=== PATIENT | female | born 2005 | race Caucasian/White ===

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

== ENCOUNTER 2024-07-24 11:10 | Emergency (ER) | payer BC, SELFPAY ==
--- NOTE | ~2024-07-24 | US_ITS ---
CLINICAL HISTORY: RUQ pain. alcoholic drinkinbg US abdomen limited Comparison: CT/SR - CT ABDOMEN PELVIS W IV CON - 08/23/22 18:40 EDT Findings: The visualized pancreas is normal. The aorta and inferior vena cava are normal caliber. The liver is normal in size and echotexture. There is no intrahepatic bile duct dilatation. The common duct is 2.7 mm in diameter. The gallbladder is normal. There is no sonographic Naqvi sign. The main portal vein is antegrade. The right kidney is 12.3 cm in length. No ascites. IMPRESSION: 1. Normal limited abdominal ultrasound. This document has been electronically signed by: Sadi Anderson MD on 07/24/2024 20:34:30
[2024-07-24 11:15] VITALS: BP 124/81; PULSE 105; RESP 20; TEMP 36.3; O2SAT 98; BMI 22.8
[2024-07-24 11:58] LABS: MANUAL DIFF FLAG NO
[2024-07-24 12:00] LABS: Basophils Percent Auto 0.3 % (0-2); Eosinophils Percent Auto 0.2 % (0-4); Hematocrit 41.2 % (37.0-47.0); Hemoglobin 13.8 g/dl (12.0-16.0); Imm Gran Abs Auto 0.05 X10*3/uL (0.00-0.03); Imm Gran Pct Auto 0.4 % (0.0-0.4); Lymphocytes Absolute Auto 0.7 X10*3/uL (1.2-4.9); Lymphocytes Percent Auto 4.9 % (20-40); Mean Corpuscular HGB Conc 33.5 g/dl (31.0-35.0); Mean Corpuscular Hemoglobin 29.2 pg (27.0-33.0); Mean Corpuscular Volume 87.1 fL (80.0-98.0); Mean Platelet Volume 9.6 fL (9.4-12.3); Monocytes Absolute Auto 0.8 X10*3/uL (0.1-1.2); Monocytes Percent Auto 5.6 % (2-11); Neutrophils Absolute Auto 12.2 x10*3/uL (2.0-8.3); Neutrophils Percent Auto 88.6 % (45-73); Platelet Count 287 X10*3/uL (160-400); Red Blood Count 4.73 X10*6/uL (4.20-5.50); White Blood Count 13.8 X10*3/uL (4.8-10.8)
[2024-07-24 12:12] LABS: IDNOW Serial# 58CA691E; Strep A Nucleic Acid Negative (Negative)
[2024-07-24 12:18] LABS: Alanine Aminotransferase 14 U/L (0-31); Albumin Level 4.6 g/dL (3.5-5.0); Alkaline Phosphatase 86 U/L (39-117); Anion Gap 13 (12-20); Aspartate Amino Transferase 19 U/L (5-31); Bilirubin Direct 0.3 mg/dL (0.0-0.5); Bilirubin Total 0.6 mg/dL (0.0-1.0); Blood Urea Nitrogen 11 mg/dL (9-16); Calcium 9.2 mg/dL (8.4-10.2); Carbon Dioxide 23 mmol/L (22-29); Chloride 109 mmol/L (96-108); Creatinine Clr Calc Pharmacy 144.1; Estimated Glomerular Filt Rate > 60; Glucose Random 121 mg/dL (60-115); Lipase 10 U/L (8-78); Potassium 4.4 mmol/L (3.3-5.1); Sodium 141 mmol/L (135-145)
[2024-07-24 12:46] LABS: Influenza A PCR NEGATIVE (Negative); Influenza B PCR NEGATIVE (Negative); Resp Syncy Virus RNA Qual PCR NEGATIVE (Negative); SARS COV2 PCR INHOUSE NEGATIVE (Negative)
[2024-07-24 13:09] LABS: HCG Quantitative < 2 mIU/mL
[2024-07-24 16:02] VITALS: BP 102/75; PULSE 112; RESP 20; TEMP 37; O2SAT 99
--- OUTSIDE RECORDS SUMMARY | 2024-07-24 16:33 | XMS_ITS | Clinical Summary ---
Author Organization [facility] Address [address] [place] [address] Care Team Providers Care Tribal Council Member Name Role Phone JamazaidMiguel renee Primary Care Provider Allergies Active Allergy Reactions Criticality Noted Date Comments Amoxicillin Urticaria (Hives) Medium 03/10/2019 Taylor Urticaria (Hives) Medium 03/10/2019 Penicillins Urticaria (Hives) Medium 03/10/2019 Medications MICROGESTIN FE 06/13, , per tablet TAKE 1 TABLET BY ORAL ROUTE ONCE DAILY 0 02/28/2019 Active Active Problems Problem Noted Date Diagnosed Date IBS (irritable bowel syndrome) 01/23/2019 Family History Relation Name Status Comments Brother Alive Father Alive Mother Alive Sister Alive Social History Tobacco Use Types Packs/Day Years Used Date Smoking Tobacco: Never Smokeless Tobacco: Never Alcohol Use Standard Drinks/Week Comments Never 0 (1 standard drink = 0.6 oz pur e alcohol) Comments No Sex and Gender Information Value Date Recorded Sex Assigned at Not on file Legal Sex Female 4:36 PM EDT Gender Identity Not on file Sexual Orientation Not on file Last Filed Vital Signs Vital Sign Reading Time Taken Comments Blood Pressure 127/83 03/16/2019 11:00 AM EDT Pulse 83 09/03/2020 2:57 PM EDT Temperature 37.2 ??C (98.9 ??F) 03/16/2019 8:44 AM ED T Respiratory Rate 15 03/16/2019 11:00 AM EDT Oxygen Saturation 98% 09/03/2020 2:57 PM EDT Inhaled Oxygen Concentration - - Weight 74.8 kg (165 lb) 06/01/2021 9:53 AM EST Height 182.9 cm (6') 06/01/2021 9:53 AM EST Body Mass Index 22.38 06/01/2021 9:53 AM EST Plan of Treatment Health Maintenance Due Date Last Done Comments Annual Physical Examination 2006 HIV Screening 01/28/2016 Chlamydia Screening 2019 Hepatitis C Screening 2021 Tetanus Vaccination 05/11/2023 05/11/2013 Covid-19 Vaccine (1 - 2023-2 5 season) 2024 Influenza Vaccination (#1) 2024 03/17/2014, Cervical Cancer Screening (A ges 21-29 Q3Y) 01/28/2024 HPV Vaccines Completed 04/18/2019, 06/26, 03/22/2018, Additional history exists Insurance Care Teams Tribal Council Member Relationship Specialty Start Date End Date Miguel Salgado DO PCP - General Pediatrics, General 03/10/19
--- OUTSIDE RECORDS SUMMARY | 2024-07-24 16:33 | XMS_ITS | Continuity of Care Document ---
Author Organization [facility] Address [address] [place], [place] Phone Care Team Providers Care Orthopedics Teacher Name Role Phone BIRGIT VASQUEZ, BRICE Unavailable Unavailable Procedures Procedure Date ESTABLISHED PATIENT OFFICE VISIT - LEVEL 3 ESTABLISHED PATIENT OFFICE VISIT - LEVEL 3 X-RAY OF KNEE - 3 VIEWS X-RAY OF KNEE - 3 VIEWS Advance Directives Directive Yes / No Effective Date File Name No Information Encounters Encounter Description Practice Location Reason(s) For Visit Diagnoses Date Provider Providers Copied on Encounter ESTABLISHED PATIENT OFFICE VISIT - LEVEL 3 [facility], [address], [place], [place], , [place] tel:[phone] No Information 1 BIRGIT NARVAEZ. [address], [address], [place], [place], [id number] , [place]. tel:[phone] ESTABLISHED PATIENT OFFICE VISIT - LEVEL 3 [facility], [address], [place], [place], , [place] tel:[phone] No Information 1 HASMUKH SANTA. [address], [address], [place], [place], [id number] , [place]. tel:[phone] Referring Provider: BRICE GENAO, [address], [place], [address] . tel:[phone] Family History Family Member Type Diagnosis Age At Onset No Information Payers Payer name Insurance type Covered constitution party ID Authoriza tion(s) [facility] [id number] Social History Type Description Quantity Date Captured Comments Sex Female Smoking Status No Information Chief Complaint And Reason For Visit No Information Reason For Referral Reason For Referral No Information History Of Present Illness Encounter Date Complaint History Of Prese nt Illness No Information Functional Status Date Functional Assessmen t No Information Instructions Date Instruction Additional Infor mation No Information Assessments Type Assessment Date No Information Patient Care Teams Name Effective Dates (start - stop) Status Members No Information
--- OUTSIDE RECORDS SUMMARY | 2024-07-24 16:34 | XMS_ITS | Encounter Summary ---
Author Organization [facility] Address [address] [place] [address] Care Team Providers Care Implementation Services Analyst Name Role Phone Miguel Salgado DO Primary Care Provider [phone] Reason for Visit * Auth/Cert Specialty Diagnoses / Procedures Referred By Marito navarro Referred To Contact Diagnoses Gastroesophageal reflux disease, esophagitis presence not specified Gastroesophageal reflux disease, esophagitis presence not specified [K21.9] Procedures MT EGD TRANSORAL BIOPSY SINGLE/MULTIPLE EGD W/ BIOPSY Dereck Barlow DO [address] [place] [address] Phone: tel: fax: [facility] - Endoscopy [address] [place] [address] fax: Referral ID Status Reason Start Date Expiration Date Visits Re quested Visits Authorized [id number] 1 1 Encounter Details Date Type Department Care Team (Late st Contact Info) Description 03/16/2019 Lab Requisition [facility] - Pathology [address] [place] [address] Dereck Barlow DO [address] [place] [address] Gastro-esophageal reflux disease without esophagitis Social History Tobacco Use Types Packs/Day Years Used Date Smoking Tobacco: Never Smokeless Tobacco: Never Alcohol Use Standard Drinks/Week Comments Never 0 (1 standard drink = 0.6 oz pur e alcohol) Comments No Sex and Gender Information Value Date Recorded Sex Assigned at Not on file Legal Sex Female 4:36 PM EDT Gender Identity Not on file Sexual Orientation Not on file documented as of this encounter Functional Status documented as of this encounter Progress Notes * Dereck Barlow DO - 03/16/2019 4:24 PM EDT Left message to discuss bx report. documented in this encounter Plan of Treatment Not on file documented as of this encounter Procedures Procedure Name Priority Date/Time Associated Diagnosis Comments SURGICAL PATHOLOGY Routine 03/16/2019 10 :15 AM EDT Gastro-esophageal reflux disease without esophagitis documented in this encounter Results * SURGICAL PATHOLOGY (03/16/2019 10:15 AM EDT) Case Report Surgical Biopsy Report ?Case: [id number] ? Authorizing Provider: ??Dereck Barlow DO ? Collected: ? 03/16/2019 1015 ? Ordering Location: ? [facility] - ?Received: ?03/16/2019 1626 ? Pathology ? Pathologist: ? Asad Morgan MD ? Specimens: ?? A) - Duodenum ? B) - Stomach, antrum ? C) - Esophagus, Esophagus 40cm ? D) - Esophagus, Esophagus 30cm ? E) - Esophagus, Esophagus 20cm ? 03/29/2019 1:30 PM EST [facility] Final Diagnosis A. Duodenum, biopsy: Duodenal mucosa , histologically unremarkable. B. Stomach, antrum, biopsy : Mild chronic gastritis. Immunostain for H. Pylori is negative. C. Esophagus, at 40 cm, biopsy: Esophageal epithelium, histologically unremarkable. D. Esophagus, at 30 cm, biopsy : Esophageal epithelium, histologically unremarkable. E. Esophagus, at 20 cm, biopsy : Esophageal epithelium, histologically unremarkable. Reported by ASAD MORGAN MD on 03/29/19 at 13:30 03/29/2019 1:30 PM EST [facility] Gross Description A. Received in formalin labeled with the patient's name Oumou Ramirez and designated duodenum are two nixon soft tissue fragments which measure 0.3 x 0.1 x 0.1 cm and 0.2 x 0.2 x 0.1 cm. Entirely submitted in 1 cassette labeled A1. Cassettes submitted on 03/18/2019. VWR 03/18/2019 18:22 PM B. Received in formalin labeled with the patient's name Oumou Ramirez and designated antrum are two nixon soft tissue fragments which measure 0.3 x 0.1 x 0.1 cm and 0.2 x 0.1 x 0.1 cm. Entirely submitted in 1 cassette labeled B1. Cassettes submitted on 03/18/2019. VWR 03/18/2019 18:22 PM C. Received in formalin labeled with the patient's name Lo Ramirez and designated esophagus 40 cm is one nixon soft tissue fragment measuring 0.4 x 0.2 x 0.1 cm. Entirely submitted in 1 cassette labeled C1. Cassettes submitted on 03/18/2019. VWR 03/18/2019 18:22 PM D. Received in formalin labeled with the patient's name Lo Ramirez and designated esophagus 30 cm is one nixon soft tissue fragment measuring 0.1 x 0.1 x 0.1 cm. Entirely submitted in 1 cassette labeled D1. Cassettes submitted on 03/18/2019. VWR 03/18/2019 18:22 PM E. Received in formalin labeled with the patient's name Lo Ramirez and designated esophagus 20 cm is one nixon soft tissue fragment measuring 0.4 x 0.2 x 0.1 cm. Entirely submitted in 1 cassette labeled E1. Cassettes submitted on 03/18/2019. VWR 03/18/2019 18:22 PM 03/29/2019 1:30 PM EST [facility] Disclaimer The electronic signature attests that the named Attending Pathologist has evaluated the specimen referred to in the signed section of the report and formulated the diagnosis therein. This report may include results from one or more molecular tests that were developed and their performance characteristics determined by [facility] - [address] [place] [address]. This report may include one or more histochemical, immunohistochemica l, and in-situ hybridization stain results that use analyte specific reagents. The tests were developed and their performance characteristics determined by [facility] [address] [place] [address]. These molecular, immunohistochemist ry, and in-situ hybridization tests are not cleared or approved by the US Food and Drug Administration. The FDA has determined that such clearance or approval is not necessary. The adequacy of testing is verified by appropriate controls. These assays are for clinical use and should not be regarded as investigational or for research. This laboratory is certified under the Clinical Laboratory Improvement Amendments of 1988 (CLIA-88) as qualified to perform high complexity clinical laboratory testing. 03/29/2019 1:30 PM EST [facility] at 1330 EST Biopsy specimen (specimen) DUODENAL STRUCTURE / Unknown 03/16/2019 10:15 AM EDT 03/16/2019 4:26 PM EDT Biopsy specimen (specimen) PYLORIC ANTRUM STRUCTURE / Unknown 03/16/2019 10:15 AM EDT 03/16/2019 4:26 PM EDT Biopsy specimen (specimen) ESOPHAGEAL STRUCTURE / Unknown 03/16/2019 10:15 AM EDT 03/16/2019 4:26 PM EDT Biopsy specimen (specimen) ESOPHAGEAL STRUCTURE / Unknown 03/16/2019 10:15 AM EDT 03/16/2019 4:26 PM EDT Biopsy specimen (specimen) ESOPHAGEAL STRUCTURE / Unknown 03/16/2019 10:15 AM EDT 03/16/2019 4:26 PM EDT Dereck Barlow DO PATHOLOGY/CYTOLOGY ORDERABLES Final Result [facility] documented in this encounter Visit Diagnoses Diagnosis Gastro-esophageal reflux disease without esophagitis documented in this encounter Care Teams Implementation Services Analyst Relationship Specialty Start Date End Date Miguel Salgado DO PCP - General Pediatrics, General 03/10/19 documented as of this encounter
--- OUTSIDE RECORDS SUMMARY | 2024-07-24 16:34 | XMS_ITS ---
Author Organization [facility] Address [address] [place] [address] Care Team Providers Care Machine Pie Maker Name Role Phone PCP, Not Found in eCW Primary Care Provider Iam tran AnthonyidaliaSandran Unavailable [phone] ALLERGIES No Known Allergies RESULTS Component Value Reference Range Notes Monospot Reviewed date:06/06/2024 02:24:58 PM Interpretation:Positive Performing Lab: Notes/Report: Positive Mononucleosis Test, Qual positive NEG - POS Rapid Flu Reviewed date:06/07/2024 09:05:14 AM Interpretation:Negative Performing Lab: Notes/Report: Negative Influenza negative NEG - POS Rapid Flu Nose Identifier Rapid Flu Nose Presence Rapid Flu Nose - Upper Respiratory Specimen COVID-19 Rapid Antigen Reviewed date:06/06/2024 02:19:12 PM Interpretation:Negative Performing Lab: Notes/Report: Negative COVID19 NEGATIVE Covid-19 PCR - [facility] Reviewed date:06/07/2024 06:38:58 PM Interpretation:Negative Performing Lab:[facility], [address] [place] [address], Director - [facility] Carbonator: Nato Quinn MD Notes/Report: COVID-19 RT-PCR Not Detected Not Detected You can help in the fight against COVID-19. [facility] may contact you to see if you are interested in voluntarily participating in one of our clinical trials. Testing is performed using polymerase chain reaction (RT-PCR) or equivalent farm equipment service technician mediated amplification (TMA) methodology. This COVID-19 (SARS-CoV-2) nucleic acid amplification test was validated by [facility] and is in use under the FDA Emergency Use Authorization (EUA) for clinical labs CLIA-certified to perform high complexity testing. Test results should be correlated with clinical presentation, patient history, and epidemiology. A = Abnormal, H = High, HH = Critical High, L = Low, LL = Critical Low Rapid Strep Reviewed date:06/06/2024 02:29:26 PM Interpretation:Negative Performing Lab: Notes/Report: Negative STREP negative NEG - POS Throat Culture - [facility]J Reviewed date:06/09/2024 09:23:28 AM Interpretation:Negative Performing Lab:[facility], [address] [place] [address], Director - [facility] Carbonator: Nato Quinn MD Notes/Report: Throat Strep A SEE NOTE: : 2005 SEX: Female Microbiology Test Name: Throat Culture [P1] Source: Throat Body Site: Collected Date/Time: 06/06/2024 14:29 EST Received Date/Time: 06/07/2024 10:12 EST Start Date/Time: 06/07/2024 10:12 EST Free Text Source: FINAL REPORT Final Report [] Reported Date/Time: 06/09/2024 08:18 EST No Streptococcus pyogenes (Group A) isolated Performing Locations P1: This test was performed at: [facility], [address] [place] [address], [id number] A = Abnormal, H = High, HH = Critical High, L = Low, LL = Critical Low REASON FOR VISIT ILLNESS SOCIAL HISTORY Tobacco Use: Social History Observation Description Date Details (start date - stop date) Former Smoker NA - NA Sex Assigned At : Social History Observation Description Sex Assigned At Unknown Tobacco Use/Smoking Question Answer Notes You are a former smoker How long has it been since you last smoked? < 1 month VITAL SIGNS Temperature 99.7 degrees Fahrenheit 06/06/19 25 Heart Rate 80 /min 06/06/2024 Blood pressure systolic 115 mm Hg 06/06/19 25 Blood pressure diastolic 78 mm Hg 025 Respiratory Rate 16 /min 06/06/2024 Oximetry 98 % 06/06/2024 Height 71 in 06/06/2024 Weight 175 lbs 06/06/2024 BMI 24.4 kg/m2 06/06/2024 Encounters Encounter Location Date Provider Diagnosis [facility] [address] [place] [address] 06/06/2024 Yue Gomez Encounter for laboratory testing for COVID-19 virus Z20.822 ; Infectious mononucleosis without complication, infectious mononucleosis due to unspecified organism B27.90 and Myalgia M79.10 ASSESSMENTS Encounter Date Diagnosis Assessment Notes Treatment Notes Treatment Clinical Notes 06/06/2024 Encounter for laboratory testing for COVID-19 virus (ICD-10 - Z20.822) 06/06/2024 Infectious mononucleosis without complication, infectious mononucleosis due to unspecified organism (ICD-10 - B27.90) Mononucleosis (also called mono) is a contagious viral infection. Most infants and children exposed to the virus get only mild flu-like symptoms or no symptoms at all. However, infection is usually more serious in teens and young adults. While the virus is active, it causes symptoms and can spread to others. After symptoms subside, the virus stays in the body and eventually becomes inactive. The virus can reactivate and develop symptoms, especially in people with weak immune systems. The virus is usually spread by contact with saliva, often by kissing, or sharing food or eating utensils. It may also spread by breastmilk, blood, or sexual contact. It takes about 4 to 6 weeks to develop symptoms after exposure. Early symptoms include headache, nausea, tiredness and general muscle aching. This is followed by sore throat and fever. Lymph glands in the neck, under the arms, or in the groin may be swollen. Symptoms usually go away in about 1 to 2 months. But they can last up to 4 months. In the first few days to weeks, a common blood test (the monospot test) used to diagnose this disease may be negative even though you have the illness. In this case, other tests may be done. Taking the antibiotics ampicillin or amoxicillin during a mono infection may cause a skin rash. This is not serious and will fade in about a week. The rash may not mean you are having an allergic reaction to the antibiotic. Sabine can cause your spleen to swell. The spleen is a fist-sized organ in the upper left abdomen that stores red blood cells. Injury to a swollen spleen can cause the spleen to rupture. This can cause life-threatening internal bleeding. To prevent this from happening, don't play contact sports or do strenuous activity for 8 weeks, or until your healthcare provider says it's OK. A sharp blow or pressure to the area could rupture a swollen spleen Rest in bed until the fever and weakness have gone away. Drink plenty of fluids, but don't drink alcohol. Otherwise, you may eat a regular diet. Nxxt-zqn-ljkcnlu throat lozenges may help soothe a sore throat. Gargling with warm salt water (1/2 teaspoon in 1 glass of warm water) may also be soothing to the throat. You may return to work or school after the fever goes away and you are feeling better. Continue to follow any activity restrictions you have been given. To limit the spread of the virus, don't expose others to your saliva for at least 6 months after your illness (no kissing or sharing utensils, drinking glasses, or toothbrushes). Follow up with your healthcare provider within 1 to 2 weeks, or as advised to be sure that there are no complications. If symptoms of extreme fatigue and swollen glands last longer than 6 months, see your healthcare provider for further testing. Call your healthcare provider right away if any of the following occur: Excessive coughing, Yellow skin or eyes, Trouble swallowing, Dizziness, Paleness 06/06/2024 Myalgia (ICD-10 - M79.10) 06/06/2024 Other PLAN OF TREATMENT Treatment Notes Assessment Notes Infectious mononucleosis wit hout complication, infectious mononucleosis due to unspecified organism Mononucleosis (also called mono) is a contagious viral infection. Most infants and children exposed to the virus get only mild flu-like symptoms or no symptoms at all. However, infection is usually more serious in teens and young adults. While the virus is active, it causes symptoms and can spread to others. After symptoms subside, the virus stays in the body and eventually becomes inactive. The virus can reactivate and develop symptoms, especially in people with weak immune systems. The virus is usually spread by contact with saliva, often by kissing, or sharing food or eating utensils. It may also spread by breastmilk, blood, or sexual contact. It takes about 4 to 6 weeks to develop symptoms after exposure. Early symptoms include headache, nausea, tiredness and general muscle aching. This is followed by sore throat and fever. Lymph glands in the neck, under the arms, or in the groin may be swollen. Symptoms usually go away in about 1 to 2 months. But they can last up to 4 months. In the first few days to weeks, a common blood test (the monospot test) used to diagnose this disease may be negative even though you have the illness. In this case, other tests may be done. Taking the antibiotics ampicillin or amoxicillin during a mono infection may cause a skin rash. This is not serious and will fade in about a week. The rash may not mean you are having an allergic reaction to the antibiotic. Sabine can cause your spleen to swell. The spleen is a fist-sized organ in the upper left abdomen that stores red blood cells. Injury to a swollen spleen can cause the spleen to rupture. This can cause life-threatening internal bleeding. To prevent this from happening, don't play contact sports or do strenuous activity for 8 weeks, or until your healthcare provider says it's OK. A sharp blow or pressure to the area could rupture a swollen spleen Rest in bed until the fever and weakness have gone away. Drink plenty of fluids, but don't drink alcohol. Otherwise, you may eat a regular diet. Fzlu-kns-otpiiml throat lozenges may help soothe a sore throat. Gargling with warm salt water (1/2 teaspoon in 1 glass of warm water) may also be soothing to the throat. You may return to work or school after the fever goes away and you are feeling better. Continue to follow any activity restrictions you have been given. To limit the spread of the virus, don't expose others to your saliva for at least 6 months after your illness (no kissing or sharing utensils, drinking glasses, or toothbrushes). Follow up with your healthcare provider within 1 to 2 weeks, or as advised to be sure that there are no complications. If symptoms of extreme fatigue and swollen glands last longer than 6 months, see your healthcare provider for further testing. Call your healthcare provider right away if any of the following occur: Excessive coughing, Yellow skin or eyes, Trouble swallowing, Dizziness, Paleness Progress Notes * Examination Category Sub-Category Detail Notes General PE GENERAL: no acute distres s, well developed, well nourished HEAD: normocephalic EYES: sclera non-icteric, no conjunctival injection MOUTH/THROAT , moist mucous membr anes, exudate noted bilaterally, mild erythema NECK supple HEART: regular rate and rhy thm LUNGS: Normal: clear to aus cultation, No respiratory distress, no accessory muscle use, No rales, No rhonchi, No wheezing NEUROLOGIC: alert and oriented , speech clear SKIN warm, dry, No rash o n visible skin LYMPHATIC no cervical lymphade nopathy EARS tympanic membranes c lear bilaterally , no redness , normal landmarks and light reflexes , canal clear without cerumen impaction History and Physical Notes * HPI (History of Present Illness) Category Sub-Category Detail Notes URI nasal congestion admits cough admits fever Admits, >101.0F vomiting none diarrhea none ear pain Denies sore throat mild Duration 4 days myalgias admits, moderate, di ffuse chills admits Modifying Factors patient has tried OT C medications with mild relief shortness of breath Denies
--- OUTSIDE RECORDS SUMMARY | 2024-07-24 16:34 | XMS_ITS | Patient Health Record ---
Author Organization [facility] Address [address] [facility] [address] [place] [address] Care Team Providers Care Utility Worker Forge Name Role Phone Miguel Salgado Primary Care Provider Unavail able ALLERGIES Allergen (clinical drug ingredient) Drug/Non Drug Allergy documented on EMR Reaction Allergy Type Onset Date Status amoxicillin Amoxicillin rash Drug Allergy Act trav Taylor Unknown Drug Allergy Active penicillin rash Drug Allergy Active REASON FOR REFERRAL No Information MEDICATIONS Medication SIG (Take, Route, Fr equency, Duration) Notes Start Date End Date Status Blanquitaestrin (21) Active SOCIAL HISTORY Sex Assigned At : Social History Observation Description Sex Assigned At Unknown PLAN OF TREATMENT No Information Insurance Providers Payer Name Payer Address Payer Phone Subscriber Number Group Number Insured Name Patient Relationship to Insured Coverage Start Date Coverage End Date [facility] [address] [place], [place] [id number] SERAFIN BAZAN Self - patient is the insured 0 MEDICAL (GENERAL) HISTORY Medical History History ICD Code *No Significant Medical History Surgical History Surgery Date(Month/Year) Hospitalization History Reason Date(Month/Year)
--- OUTSIDE RECORDS SUMMARY | 2024-07-24 16:34 | XMS_ITS | Patient Health Record ---
Author Organization [facility] Address [address] [place] [address] Care Team Providers Care Sheriff Detective Name Role Phone PCP, Not Found in eCW Primary Care Provider Unav ailable Yue Gomez Unavailable [phone] ALLERGIES No Known Allergies RESULTS Component Value Reference Range Notes Monospot Reviewed date:06/06/2024 02:24:58 PM Interpretation:Positive Performing Lab: Notes/Report: Positive Mononucleosis Test, Qual positive NEG - POS Rapid Flu Reviewed date:06/07/2024 09:05:14 AM Interpretation:Negative Performing Lab: Notes/Report: Negative Influenza negative NEG - POS Rapid Flu Nose Identifier Rapid Flu Nose Presence Rapid Flu Nose - Upper Respiratory Specimen Rapid Strep Reviewed date:06/06/2024 02:29:26 PM Interpretation:Negative Performing Lab: Notes/Report: Negative STREP negative NEG - POS Throat Culture - NSLIJ Reviewed date:06/09/2024 09:23:28 AM Interpretation:Negative Performing Lab:[facility], [address] [place] [address], Director - [facility] Processing Inspector: Nato Quinn MD Notes/Report: Throat Strep A [...] Locations P1: This test was performed at: [facility], [address] [place] [address], [id number], [facility] A = Abnormal, H = High, HH = Critical High, L = Low, LL = Critical Low Covid-19 PCR - NSLIJ Reviewed date:06/07/2024 06:38:58 PM Interpretation:Negative Performing Lab:[facility], [address] [place] [id number], Director - [facility] Processing Inspector: Nato Quinn MD Notes/Report: COVID-19 RT-PCR Not Detected Not Detected You can help in the fight against COVID-19. [facility] may contact you to see if you are interested in voluntarily participating in one of our clinical trials. Testing is performed using polymerase chain reaction (RT-PCR) or equivalent real property appraiser mediated amplification (TMA) methodology. This COVID-19 (SARS-CoV-2) nucleic acid amplification test was validated by [facility] and is in use under the FDA Emergency Use Authorization (EUA) for clinical labs CLIA-certified to perform high complexity testing. Test results should be correlated with clinical presentation, patient history, and epidemiology. A = Abnormal, H = High, HH = Critical High, L = Low, LL = Critical Low COVID-19 Rapid Antigen Reviewed date:06/06/2024 02:19:12 PM Interpretation:Negative Performing Lab: Notes/Report: Negative COVID19 NEGATIVE REASON FOR REFERRAL No Information SOCIAL HISTORY Tobacco Use: Social History Observation Description Date Details (start date - stop date) Former Smoker NA - NA Sex Assigned At : Social History Observation Description Sex Assigned At Unknown Tobacco Use/Smoking Question Answer Notes You are a former smoker How long has it been since you last smoked? < 1 month VITAL SIGNS Heart Rate 80 /min 06/06/2024 Temperature 99.7 degrees Fahrenheit 06/06/2024 Respiratory Rate 16 /min 06/06/2024 Oximetry 98 % 06/06/2024 Blood pressure diastolic 78 mm Hg 06/06/2024 Height 71 in 06/06/2024 Blood pressure systolic 115 mm Hg 06/06/2024 Weight 175 lbs 06/06/2024 BMI 24.4 kg/m2 06/06/2024 Encounters Encounter Location Date Provider Diagnosis [facility] [address] [facility] [place] [address] 06/06/2024 Yue Danyelljulio Encounter for laboratory testing for COVID-19 virus Z20.822 ; Infectious mononucleosis without complication, infectious mononucleosis due to unspecified organism B27.90 and Myalgia M79.10 ASSESSMENTS Encounter Date Diagnosis Assessment Notes Treatment Notes Treatment Clinical Notes 06/06/2024 Infectious mononucleosis without complication, infectious mononucleosis [...] having an allergic reaction to the antibiotic. Barnes can cause your spleen to swell. The [...] Otherwise, you may eat a regular diet. [id number] throat lozenges may help soothe a sore [...] or eyes, Trouble swallowing, Dizziness, Paleness 06/06/2024 Encounter for laboratory testing for COVID-19 virus (ICD-10 - Z20.822) 06/06/2024 Myalgia (ICD-10 - M79.10) 06/06/2024 Other PLAN OF TREATMENT No Information Insurance Providers Payer Name Payer Address Payer Phone Subscriber Number Group Number Insured Name Patient Relationship to Insured Coverage Start Date Coverage End Date [facility] [address] [place] [phone] [id number] SERAFIN BAZAN Self - patient is the insured
[2024-07-24] MEDS: 0.9 % Sodium Chloride 1,000 ML 999 ML IV (17:14)
[2024-07-24] MEDS: ondansetron HCL 4 MG/2 ML VIAL IVPUSH (17:14)
--- NOTE | 2024-07-24 18:13 | ED_ITS ---
HPI - General Adult General Chief complaint: Nausea/Vomiting/Diarrhea Stated complaint: alcohol poisoning Time Seen by Provider: 07/24/24 16:07 Source: patient, RN notes reviewed and old records reviewed Mode of arrival: ambulatory Limitations: no limitations History of Present Illness ED Provider: Adelita HOWARD narrative: 19-year-old female presents for evaluation of nausea and vomiting. Patient denies any known medical history. She reports that she was diagnosed with mononucleosis about 1 month ago. She states that she drank about 8 alcoholic beverages yesterday. Since she woke up this morning she has had persistent vomiting in his now vomiting a bunch of bile. She has some upper abdominal pain pain Denies any history abdominal surgeries pain Denies any known contacts pain Denies any fevers or chills Related Data Previous Rx's ?Medication ?Instructions ?Recorded ondansetron 4 mg disintegrating 4 mg PO TID PRN nausea and 08/23/22 tablet vomiting 5 days #10 tabs metoclopramide HCl 10 mg tablet 10 mg PO Q6H PRN nausea and 07/24/24 (Reglan) vomiting #20 tabs Allergies Allergy/AdvReac Type Severity Reaction Status Date / Time amoxicillin Allergy Nausea and Verified 07/24/24 11:17 Vomiting jorge Allergy Severe Angioedema Uncoded 07/24/24 11:17 Review of Systems 2 Constitutional: Constitutional: Denies body ache(s), Denies chills and Denies fever(s) Eyes: Eyes: Denies blurry vision ENT: Denies vertigo and Denies dizziness Cardiovascular: Cardiovascular: Denies chest pain and Denies dyspnea Respiratory: Respiratory: Denies cough and Denies dyspnea Gastrointestinal: Gastrointestinal: Reports abdominal pain, Denies diarrhea, Denies loose stools, Reports nausea and Reports vomiting Musculoskeletal: Musculoskeletal: Denies back pain Integumentary/Breasts: Skin/Breast: Denies rash Neurologic: Denies vertigo and Denies dizziness Psychiatric: Psychiatric: Denies anxiety PMFSH Social History Social History Advance Directives: No Advance Directives Information Provided: No Physical Exam ED Vital Signs: Vital Signs - 24 hr 07/24/24 11:15 07/24/24 16:02 07/24/24 18:59 Temperature 97.3 F 98.6 F 98.2 F Pulse Rate 105 H 112 H 100 Respiratory Rate 20 20 18 Blood Pressure 124/81 102/75 112/67 Pulse Oximetry 98 99 100 Oxygen Delivery Method Room Air Room Air Room Air BMI result Body Mass Index 22.8 Const General: healthy appearing, comfortable, no acute distress, alert and awake Nutritional Appearance: well nourished Orientation/consciousness: patient oriented x3 HENMT Head: Yes normocephalic and Yes atraumatic Eyes Eyelids: Yes eyelids normal Conjunctivae: conjunctivae normal Sclerae: sclerae normal Corneas: corneas normal Pupils: Equal, round and reactive pupils present EOM: EOMs intact bilaterally Neck Neck: Yes full ROM Resp Effort & Inspection: normal respiratory effort, able to speak in complete sentences and not labored GI Inspection: No distended Palpation (GI): Soft to palpation, not firm, nontender, no guarding and not rigid Skin General skin exam: elasticity normal Neuro General: patient oriented x3 Cranial nerves: Yes Equal, round and reactive pupils present and Yes Bilaterally intact EOM present Cognition (Neuro): normal cognition Extrem Other: Moving all extremities well without any obvious deformities Course Reevaluation(s) Reevaluation #1: unfortunately the patient's ultrasound images were not uploaded to the radiology company to be red until just recently. The patient does not want to wait for her results. He unofficial report shows no concerning findings by the techs read. I reviewed the ultrasound images myself, did not see any concerning significant abnormalities. We will discharge the patient with Reglan for symptomatic care as she reported that work better than the [employer]. Time: 20:35 Medications Administered Discontinued Medications Generic Name Dose Route Start Last Admin Trade Name Wilmer PRN Reason Stop Dose Admin Sodium Chloride 1,000 mls @ 999 mls/hr 07/24/24 16:30 07/24/24 19:38 Ns IV 07/24/24 17:30 Infused .Q1H1M MK Infusion Metoclopramide HCl 10 mg 07/24/24 19:31 07/24/24 19:35 Metoclopramide Hcl 10 Mg/2 Ml Vial IVPUSH 07/24/24 19:32 10 mg ONCE ONE Administration Ondansetron HCl 4 mg 07/24/24 16:26 07/24/24 17:14 Ondansetron Hcl 4 Mg/2 Ml Vial IVPUSH 03/02/25 16:27 4 mg ONCE ONE Administration Medical Decision Making Medical Decision Making [facility] Narrative: 19-year-old female presents for evaluation of upper abdominal pain, nausea and vomiting since this morning. Clinically her symptoms are most significant with alcoholic gastritis after she was drinking quite heavily last night. She has no evidence of pancreatitis, no right upper quadrant tenderness on exam. I have a low suspicion for biliary colic or cholecystitis. An ultrasound was ordered to evaluate the right upper quadrant. She was slightly tachycardic but labs are reassuring, no RUIZ. no lower abdominal pain or tenderness to suggest acute appendicitis. Differential Diagnosis Differential Diagnoses: The differential diagnosis associated with the presentation includes Alcoholic gastritis Gastroenteritis Abdominal pain Pancreatitis Biliary colic Lab Data [facility] Lab Attestation statement: I reviewed the patient's lab results. mild leukocytosis to 13.8 which is likely reactive to vomiting. No anemia. Normal platelet count. No significant electrolyte abnormalities 07/24/24 11:54 07/24/24 11:54 Labs: Lab Results 07/24/24 Range/Units 11:54 WBC 13.8 H (4.8-10.8) X10*3/uL RBC 4.73 (4.20-5.50) X10*6/uL Hgb 13.8 (12.0-16.0) g/dl Hct 41.2 (37.0-47.0) % MCV 87.1 (80.0-98.0) fL MCH 29.2 (27.0-33.0) pg MCHC 33.5 (31.0-35.0) g/dl RDW 13.0 (11.0-16.0) % Plt Count 287 (160-400) X10*3/uL MPV 9.6 (9.4-12.3) fL Immature Gran % (Auto) 0.4 (0.0-0.4) % Neut % (Auto) 88.6 H (45-73) % Lymph % (Auto) 4.9 L (20-40) % [place] % (Auto) 5.6 (2-11) % Eos % (Auto) 0.2 (0-4) % Baso % (Auto) 0.3 (0-2) % Lymph # (Auto) 0.7 L (1.2-4.9) X10*3/uL [place] # (Auto) 0.8 (0.1-1.2) X10*3/uL Eos # (Auto) 0.0 (0.0-0.4) X10*3/uL Baso # (Auto) 0.0 (0.0-0.2) X10*3/uL Abs Immat Gran (auto) 0.05 H (0.00-0.03) X10*3/uL Absolute Neuts (auto) 12.2 H (2.0-8.3) x10*3/uL Absolute Nucleated RBC 0.000 (0.0-0.012) X10*3/uL Nucleated RBC % (auto) 0.0 (0.0-0.2) /100WBC Sodium 141 (135-145) mmol/L Potassium 4.4 (3.3-5.1) mmol/L Chloride 109 H (96-108) mmol/L Carbon Dioxide 23 (22-29) mmol/L Anion Gap 13 (12-20) BUN 11 (9-16) mg/dL Creatinine 0.69 (0.5-1.4) mg/dL Estim Creat Clear Calc 144.1 Estimated GFR > 60 Random Glucose 121 H (60-115) mg/dL Calcium 9.2 (8.4-10.2) mg/dL Total Bilirubin 0.6 (0.0-1.0) mg/dL Direct Bilirubin 0.3 (0.0-0.5) mg/dL AST 19 (5-31) U/L ALT 14 (0-31) U/L Alkaline Phosphatase 86 (39-117) U/L Total Protein 8.0 (6.5-8.0) g/dL Albumin 4.6 (3.5-5.0) g/dL Lipase 10 (8-78) U/L Beta HCG, Quant < 2 mIU/mL Influenza Type A (PCR) NEGATIVE (Negative) Influenza Type B (PCR) NEGATIVE (Negative) RSV RNA Qual (PCR) NEGATIVE (Negative) SARS-CoV-2 RNA (RT-PCR) NEGATIVE (Negative) S. pyogenes GrpA ANAID Negative (Negative) Radiology Impression Discussion of test interpretation with radiology: I have reviewed the radiologist's reading. Radiologist Impression: Findings: The visualized pancreas is normal. The aorta and inferior vena cava are normal caliber. The liver is normal in size and echotexture. There is no intrahepatic bile duct dilatation. The common duct is 2.7 mm in diameter. The gallbladder is normal. There is no sonographic Naqvi sign. The main portal vein is antegrade. The right kidney is 12.3 cm in length. No ascites. IMPRESSION: 1. Normal limited abdominal ultrasound. This document has been electronically signed by: Sadi Anderson MD on 07/24/2024 20:34:30 Discharge Plan Discharge Clinical Impression: Vomiting Patient Disposition: Home, Self-Care Instructions: Acute Nausea and Vomiting (ED) Additional Instructions: Your blood work today was reassuring. You were given mild dehydration. your ultrasound did not show any concerning findings. you may use Reglan as needed for nausea and vomiting follow-up with your primary doctor, return for new or worsening symptoms Prescriptions: New metoclopramide HCl [Reglan] 10 mg tablet 10 mg PO Q6H PRN (Reason: nausea and vomiting) Qty: 20 0RF No Action ondansetron 4 mg tablet,disintegrating 4 mg PO TID PRN (Reason: nausea and vomiting) 5 Days Qty: 10 0RF Stand Alone Forms: Work/School Release Print Language: Chilean
[2024-07-24 18:59] VITALS: BP 112/67; PULSE 100; RESP 18; TEMP 36.8; O2SAT 100
--- NOTE | 2024-07-24 18:59 | PC.NURSE ---
this rn assumed care of pt, pt a&ox4, respirations even and unlabored. pt fluids noted to still be administering. vss. pt reporting nausea, provider aware.
[2024-07-24] MEDS: Metoclopramide HCl 10 MG/2 ML VIAL IVPUSH (19:35)
[2024-07-24 20:40] VITALS: BP 119/65; PULSE 115; RESP 16; TEMP 36.8; O2SAT 95
[2024-07-24 20:41] VITALS: BP 119/65; PULSE 115; RESP 16; TEMP 36.8; O2SAT 95
== END 2024-07-24 20:44 | disposition home or self-care (01) ==
PROVIDERS: Physician Assistant; Emergency Provider Emergency Medicine
DX: R11.2 Nausea with vomiting, unspecified (principal); R10.10 Upper abdominal pain, unspecified; R00.0 Tachycardia, unspecified; R10.2 Pelvic and perineal pain; Z03.818 Encounter for observation for suspected exposure to other biological agents ruled out; Z79.899 Other long term (current) drug therapy
CPT/HCPCS: 0241U; 36415; 76705; 80053; 82248; 83690; 84702; 85025; 87651; 96361; 96374; 96375; 99284; J2405; J2765

== ENCOUNTER → 2024-07-24 11:40 | Outpatient (BNV) | payer BC, SELFPAY | PROVIDERS: Emergency Provider Emergency Medicine; Visit Provider Nuclear Medicine | DX: R10.11 Right upper quadrant pain (principal) | CPT/HCPCS: 76705 ==